=== PATIENT | female | born 1955 | race African-American/Black ===

== ENCOUNTER 2017-10-17 09:44 | Emergency (ER) | payer OTHER ==
--- NOTE | 2017-10-17 10:23 | ER Document Report ---
ED Medical Screen (RME) - General Chief Complaint: Abdominal Pain Stated Complaint: RIGHT SIDE PAIN,POSSIBLE ABSCESS Time Seen by Provider: 10/17/17 10:21 Notes: Patient states she has had several days of right hip pain that is worse with walking. No known injuries. She also states that she has a "boil" on the upper center of her back that has spontaneously started to drain fluid. TRAVEL OUTSIDE OF THE [place] IN LAST 30 DAYS: No - Related Data Allergies/Adverse Reactions: No Known Allergies Allergy (Unverified 10/17/17 09:45) Past Medical History - Social History Frequency of alcohol use: Social Drug Abuse: None Renal/ Medical History: Denies: Hx Peritoneal Dialysis Physical Exam - Vital signs Vitals: Temp Pulse Resp BP Pulse Ox 98 F 77 18 155/83 H 96 10/17/17 10:07 10/17/17 10:07 10/17/17 10:07 10/17/17 10:07 10/17/17 10:07 Course - Vital Signs Vital signs: Temp Pulse Resp BP Pulse Ox 98 F 77 18 155/83 H 96 10/17/17 10:07 10/17/17 10:07 10/17/17 10:07 10/17/17 10:07 10/17/17 10:07
--- NOTE | 2017-10-17 10:54 | RADIOLOGY REPORT (SQ) ---
EXAM DESCRIPTION: HIP RIGHT AP/LATERAL COMPLETED DATE/TIME: 10/17/2017 10:39 am REASON FOR STUDY: pain COMPARISON: None. NUMBER OF VIEWS: Two views. TECHNIQUE: AP pelvis and additional frog-leg view of the right hip. LIMITATIONS: None. FINDINGS: MINERALIZATION: Normal. RIGHT HIP: No acute fracture dislocation. Arthritic change noted with periarticular osteophyte and m inor joint narrowing. LEFT HIP: No acute fracture or dislocation. Arthritic change noted with periarticular osteophyte and minor joint narrowing. PUBIS AND ISCHIUM: No fracture. PELVIS: No fracture. SACRUM: No fracture or dislocation. No worrisome bone lesions. LOWER LUMBAR SPINE: Arthritic change. SOFT TISSUES: Nonspecific pelvic calcifications, could represent uterine fibroid formation OTHER: If an occult fracture suspected clinically, consider followup imaging. IMPRESSION: Arthritic change of each hip. TECHNICAL DOCUMENTATION: JOB ID: [id number] [employer]- All Rights Reserved
--- NOTE | 2017-10-17 12:51 | ER Document Report ---
ED General - General Mode of Arrival: Ambulatory Information source: Patient TRAVEL OUTSIDE OF THE [place] IN LAST 30 DAYS: No <JOVON DOLAN - Last Filed: 10/17/17 13:08> <ILENE PICHARDO - Last Filed: 10/18/17 09:29> - General Chief Complaint: Abdominal Pain Stated Complaint: RIGHT SIDE PAIN,POSSIBLE ABSCESS Time Seen by Provider: 10/17/17 10:21 Notes: Patient is a 62 year old female presenting to the emergency department complaining of right hip pain and an abscess on her back. Patient states her hip pain was onset 2 days ago. Patient states she was walking when the pain was onset suddenly. Patient also complains of chills. Patient denies a fall or injury to her hip, cough or congestion. Patient further states the abscess on her back was onset 5 days ago, stating it has grown in size and began to drain when originally it was a small bump on her back that she has had for years. (JOVON DOLAN) - Related Data Allergies/Adverse Reactions: No Known Allergies Allergy (Unverified 10/17/17 09:45) Past Medical History - General Information source: Patient - Social History Smoking Status: Never Smoker Frequency of alcohol use: Social Drug Abuse: None Patient has suicidal ideation: No Patient has homicidal ideation: No <JOVON DOLAN - Last Filed: 10/17/17 13:08> - Social History Family History: Reviewed & Not Pertinent <ILENE PICHARDO - Last Filed: 10/18/17 09:29> Review of Systems - Review of Systems Constitutional: See HPI, Chills EENT: No symptoms reported Cardiovascular: No symptoms reported Respiratory: No symptoms reported Gastrointestinal: No symptoms reported Genitourinary: No symptoms reported Female Genitourinary: No symptoms reported Musculoskeletal: See HPI Skin: See HPI Hematologic/Lymphatic: No symptoms reported Neurological/Psychological: No symptoms reported -: Yes All other systems reviewed and negative <JOVON DOLAN - Last Filed: 10/17/17 13:08> Physical Exam - General General appearance: Appears well, Alert In distress: None - HEENT Head: Normocephalic, Atraumatic Eyes: Normal Conjunctiva: Normal Pupils: PERRL Mucous membranes: Normal - Respiratory Respiratory status: No respiratory distress Chest status: Nontender Breath sounds: Normal Chest palpation: Normal - Cardiovascular Rhythm: Regular Heart sounds: Normal auscultation Murmur: No Friction rub: No Gallop: None auscultated - Abdominal Inspection: Normal Distension: No distension Bowel sounds: Normal Tenderness: Nontender Organomegaly: No organomegaly - Back Back: Nontender, Other - Sinus with induration and purulence that is apporixmately 6x6cm located upper mid back. - Extremities General upper extremity: Normal inspection, Normal ROM General lower extremity: Normal inspection, Normal ROM Hip: Other - able to bear weight bilaterally - Neurological Neuro grossly intact: Yes Cognition: Normal Orientation: AAOx4 Jitendra Coma Scale Eye Opening: Spontaneous Cascade Coma Scale Verbal: Oriented Cascade Coma Scale Motor: Obeys Commands Cascade Coma Scale Total: 15 Speech: Normal - Psychological Associated symptoms: Normal affect, Normal mood - Skin Skin Temperature: Warm Skin Moisture: Dry Skin Color: Normal <JOVON DOLAN - Last Filed: 10/17/17 13:08> - Vital signs Vitals: Temp Pulse Resp BP Pulse Ox 98 F 77 18 155/83 H 96 10/17/17 10:07 10/17/17 10:07 10/17/17 10:07 10/17/17 10:07 10/17/17 10:07 Course <JOVON DOLAN - Last Filed: 10/17/17 13:08> <ILENE PICHARDO - Last Filed: 10/18/17 09:29> - Re-evaluation Re-evalutation: 10/17/17 15:04 Patient shows osteoarthritis but no evidence of fracture. Patient has not had any traumas or falls to suggest fracture. Discussed with patient need to follow -up with primary care referral and physical therapy. Will provide 5 days of prednisone. In regards to her abscess on her upper back incision and drainage is performed with minimal amount of purulence and bloody discharge. Packing was applied. Will provide 5 days of Bactrim. Patient is to remove wick in 2 days and has not fallen out by them. Return precautions provided. (ILENE PICHARDO ) - Vital Signs Vital signs: Temp Pulse Resp BP Pulse Ox 98.2 F 64 18 131/60 H 96 10/17/17 15:19 10/17/17 15:19 10/17/17 15:19 10/17/17 15:19 10/17/17 15:19 Procedures <JOVON DOLAN - Last Filed: 10/17/17 13:08> - Incision and Drainage Back Type: Simple Anesthetic type: 1% Lidocaine mL's of anesthetic: 4 Blade size: 11 I&D procedure: Betadine prep applied Incision Method: Incision made by scalpel <ILENE PICHARDO - Last Filed: 10/18/17 09:29> - Incision and Drainage Back Notes: 10/17/17 15:05 Approximately 2-3 cc of blood and purulence expressed 10/17/17 15:05 Patient tolerated procedure well. (ILENE PICHARDO) Discharge <JOVON DOLAN - Last Filed: 10/17/17 13:08> <ILENE PICHARDO - Last Filed: 10/18/17 09:29> - Discharge Clinical Impression: Abscess Osteoarthritis Qualifiers: Osteoarthritis location: hip Osteoarthritis type: unspecified Laterality: bilateral Qualified Code(s): M16.0 - Bilateral primary osteoarthritis of hip Disposition: HOME, SELF-CARE Instructions: Abscess ([facility]), Osteoarthritis ([facility]) Prescriptions: Prednisone [Deltasone 20 mg Tablet] 40 tab PO DAILY 5 Days #10 tablet Sulfamethoxazole/Trimethoprim [Bactrim Ds Tablet] 1 each PO BID 5 Days #10 tablet Scribe Attestation: 10/18/17 09:28 I personally performed the services described documentation, reviewed and edited the documentation which was dictated to describe my presence, and it accurately records my words and actions. (ILENE PICHARDO) Scribe Documentation - Scribe Written by Cynthia:: Cynthia Owen, 10/17/2017 12:55 acting as scribe for :: Dimitrios <JOVON DOLAN - Last Filed: 10/17/17 13:08>
[2017-10-17 15:27] VITALS: BP 131/60
== END 2017-10-17 15:24 | disposition home or self-care (01) ==
LOC: ER 09:44
PROC: 0H96XZZ Drainage of Back Skin, External Approach (ICD-10-PCS; principal; 2017-10-17)
DX: L02.212 Cutaneous abscess of back [any part, except buttock and flank] (principal); M16.0 Bilateral primary osteoarthritis of hip; M25.551 Pain in right hip; R10.9 Unspecified abdominal pain
CPT/HCPCS: 99284

== ENCOUNTER → 2018-01-27 | Outpatient (CLI) | payer OTHER ==
[2018-01-27 13:24] LABS: ABSOLUTE EOSINOPHILS # (AUTO) 0.1 10^3/uL (0.0-0.6); ABSOLUTE LYMPHOCYTES (AUTO) 2.5 10^3/uL (0.5-4.7); ABSOLUTE MONOCYTES (AUTO) 0.4 10^3/uL (0.1-1.4); ABSOLUTE NEUT (AUTO) 2.6 10^3/uL (1.7-8.2); BASOPHILS % (AUTO) 0.3 % (0-2); HEMATOCRIT 35.4 % (36.0-47.0); HEMOGLOBIN 11.6 g/dL (12.0-15.5); LYMPHOCYTES % (AUTO) 43.9 % (13-45); MEAN CORPUSCULAR HEMOGLOBIN 28.5 pg (27.0-33.4); MEAN CORPUSCULAR HGB CONC 32.9 g/dL (32.0-36.0); MEAN CORPUSCULAR VOLUME 87 fl (80-97); PLATELET COUNT 260 10^3/uL (150-450); RED BLOOD COUNT 4.09 10^6/uL (3.72-5.28); RED CELL DISTRIBUTION WIDTH 15.2 % (11.5-14.0); SEGMENTED NEUTROPHILS % (AUTO) 45.8 % (42-78); TOTAL CELLS COUNTED % (AUTO) 100 %; WHITE BLOOD COUNT 5.6 10^3/uL (4.0-10.5)
[2018-01-27 13:50] LABS: ALANINE AMINOTRANSFERASE 51 U/L (9-52); ALBUMIN 4.2 g/dL (3.5-5.0); ALKALINE PHOSPHATASE 60 U/L (38-126); ANION GAP 14 (5-19); ASPARTATE AMINO TRANSFERASE 41 U/L (14-36); BILIRUBIN,DIRECT 0.3 mg/dL (0.0-0.4); BILIRUBIN,TOTAL 0.3 mg/dL (0.2-1.3); BLOOD UREA NITROGEN 12 mg/dL (7-20); CALCIUM 9.7 mg/dL (8.4-10.2); CARBON DIOXIDE 28 mmol/L (22-30); CHLORIDE 104 mmol/L (98-107); CHOLESTEROL 258.57 mg/dL (0-200); GLUCOSE 101 mg/dL (75-110); SODIUM 145.8 mmol/L (137-145); TOTAL PROTEIN 7.6 g/dL (6.3-8.2); TRIGLYCERIDES 158 mg/dL (<150)
[2018-01-27 14:01] LABS: DIRECT LDL 185 mg/dL (<100)
[2018-01-27 14:04] LABS: VLDL CHOLESTEROL 31.6 mg/dL (10-31)
== END ==
LOC: CCC 12:26
DX: Z00.00 Encounter for general adult medical examination without abnormal findings (principal)
CPT/HCPCS: 36415; 80053; 80061; 83036; 84443; 85025

== ENCOUNTER 2018-04-10 09:24 | Emergency (ER) | payer SELFPAY ==
[2018-04-10] MEDS ORDERED: ASPIRIN 81 MG TABLET, CHEWABLE PO ONE (09:58)
--- NOTE | 2018-04-10 10:00 | ER Document Report ---
ED Medical Screen (RME) - General Chief Complaint: Shoulder Pain Stated Complaint: SHOULDER/ARM PAIN Time Seen by Provider: 04/10/18 09:54 Mode of Arrival: Ambulatory Information source: Patient Notes: Patient presents complaining of left shoulder, neck and back pain pain for the past 4 days that radiated into the left upper chest area yesterday. Patient denies any history of arthritis involving the shoulder. Patient denies any shoulder injury. Patient does report cough for the past 5 days. Patient denies any nausea vomiting or shortness of breath. hx: Hypertension, dyslipidemia, osteoarthritis I have greeted and performed a rapid initial assessment of this patient. A comprehensive ED assessment and evaluation of the patient, analysis of test results and completion of the medical decision making process will be conducted by additional ED providers. TRAVEL OUTSIDE OF THE [place] IN LAST 30 DAYS: No - Related Data Allergies/Adverse Reactions: No Known Allergies Allergy (Unverified 10/17/17 09:45) Past Medical History Renal/ Medical History: Denies: Hx Peritoneal Dialysis Physical Exam - Vital signs Vitals: Temp Pulse Resp BP Pulse Ox 98 F 71 16 167/57 H 97 04/10/18 09:28 04/10/18 09:28 04/10/18 09:28 04/10/18 09:28 04/10/18 09:28 - Cardiovascular Rhythm: Regular Heart sounds: S2 appreciated Course - Vital Signs Vital signs: Temp Pulse Resp BP Pulse Ox 98 F 71 16 167/57 H 97 04/10/18 09:28 04/10/18 09:28 04/10/18 09:28 04/10/18 09:28 04/10/18 09:28 Doctor's Discharge - Discharge Referrals: [facility] [Primary Care Provider] - Follow up as needed
--- NOTE | 2018-04-10 10:28 | RADIOLOGY REPORT (SQ) ---
EXAM DESCRIPTION: CHEST 2 VIEWS COMPLETED DATE/TIME: 04/10/2018 10:19 am REASON FOR STUDY: cp COMPARISON: None. EXAM PARAMETERS: NUMBER OF VIEWS: two views TECHNIQUE: Digital Frontal and Lateral radiographic views of the chest acquired. RADIATION DOSE: NA LIMITATIONS: The patient's gabriella obscure detail somewhat. None FINDINGS: LUNGS AND PLEURA: No opacities, masses or pneumothorax. No pleural effusion. MEDIASTINUM AND HILAR STRUCTURES: No masses or contour abnormalities. HEART AND VASCULAR STRUCTURES: Borderline cardiomegaly. No evidence for failure. BONES: No acute findings. HARDWARE: None in the chest. OTHER: No other significant finding. IMPRESSION: 1 No acute pulmonary findings. 2 Borderline cardiomegaly. No evidence for failure. TECHNICAL DOCUMENTATION: JOB ID: [id number] [employer]- All Rights Reserved Reading location - IP/workstation name: [email or web address]
[2018-04-10 11:34] LABS: ABSOLUTE BASOPHILS # (AUTO) 0.1 10^3/uL (0.0-0.2); ABSOLUTE EOSINOPHILS # (AUTO) 0.1 10^3/uL (0.0-0.6); ABSOLUTE LYMPHOCYTES (AUTO) 2.4 10^3/uL (0.5-4.7); ABSOLUTE MONOCYTES (AUTO) 0.4 10^3/uL (0.1-1.4); ABSOLUTE NEUT (AUTO) 2.7 10^3/uL (1.7-8.2); BASOPHILS % (AUTO) 1.3 % (0-2); EOSINOPHILS % (AUTO) 1.9 % (0-6); HEMATOCRIT 36.9 % (36.0-47.0); HEMOGLOBIN 11.9 g/dL (12.0-15.5); LYMPHOCYTES % (AUTO) 42.5 % (13-45); MEAN CORPUSCULAR HGB CONC 32.4 g/dL (32.0-36.0); MEAN CORPUSCULAR VOLUME 86 fl (80-97); MONOCYTES % (AUTO) 7.1 % (3-13); PLATELET COUNT 291 10^3/uL (150-450); RED BLOOD COUNT 4.27 10^6/uL (3.72-5.28); RED CELL DISTRIBUTION WIDTH 15.1 % (11.5-14.0); SEGMENTED NEUTROPHILS % (AUTO) 47.2 % (42-78); TOTAL CELLS COUNTED % (AUTO) 100 %; WHITE BLOOD COUNT 5.7 10^3/uL (4.0-10.5)
[2018-04-10 11:57] LABS: ALANINE AMINOTRANSFERASE 38 U/L (9-52); ALBUMIN 4.1 g/dL (3.5-5.0); ALKALINE PHOSPHATASE 69 U/L (38-126); ANION GAP 13 (5-19); ASPARTATE AMINO TRANSFERASE 31 U/L (14-36); BILIRUBIN,DIRECT 0.3 mg/dL (0.0-0.4); BILIRUBIN,TOTAL 0.3 mg/dL (0.2-1.3); BLOOD UREA NITROGEN 12 mg/dL (7-20); CALCIUM 9.5 mg/dL (8.4-10.2); CARBON DIOXIDE 25 mmol/L (22-30); CHLORIDE 109 mmol/L (98-107); CREATINE KINASE 214 U/L (30-135); GLUCOSE 100 mg/dL (75-110); POTASSIUM 4.1 mmol/L (3.6-5.0); SODIUM 146.6 mmol/L (137-145); TOTAL PROTEIN 7.7 g/dL (6.3-8.2)
[2018-04-10 12:29] LABS: CREATINE KINASE MB 1.24 ng/mL (<4.55)
[2018-04-10 12:30] LABS: TROPONIN I < 0.012 ng/mL
--- NOTE | 2018-04-10 12:40 | EKG REPORT ---
SEVERITY:- ABNORMAL ECG - SINUS RHYTHM FIRST DEGREE AV BLOCK BORDERLINE T ABNORMALITIES, ANT-LAT LEADS : Confirmed by: Yariel Oconnor MD 10-Apr-2018 12:39:49
--- NOTE | 2018-04-10 12:49 | RADIOLOGY REPORT (SQ) ---
EXAM DESCRIPTION: SHOULDER LEFT 2 OR MORE VIEWS COMPLETED DATE/TIME: 04/10/2018 12:32 pm REASON FOR STUDY: left shoulder pain x 4 days, pain w/ movement COMPARISON: None. NUMBER OF VIEWS: Three views. TECHNIQUE: Internal rotation, external rotation, and Y view images acquired of the left shoulder. LIMITATIONS: None. FINDINGS: MINERALIZATION: Normal. BONES: No acute fracture or dislocation. No worrisome bone lesions. JOINTS: Mild to moderate acromioclavicular arthrosis. No dislocation. VISUALIZED LUNGS AND RIBS: No pneumothorax. No rib fracture. SOFT TISSUES: No radiopaque foreign body. OTHER: No other significant finding. 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 2 No acute osseous findings. TECHNICAL DOCUMENTATION: JOB ID: [id number] [employer]- All Rights Reserved Reading location - IP/workstation name: [email or web address]
[2018-04-10 13:08] VITALS: BP 146/72
--- NOTE | 2018-04-10 13:49 | ER Document Report ---
ED General - General Chief Complaint: Shoulder Pain Stated Complaint: SHOULDER/ARM PAIN Time Seen by Provider: 04/10/18 09:54 Mode of Arrival: Ambulatory TRAVEL OUTSIDE OF THE [place] IN LAST 30 DAYS: No - HPI Notes: 63-year-old female with medical history of hypertension, osteoarthritis and hyperlipidemia presents to the ED for complaints of left shoulder pain and left upper chest pain that has been occurring for the last 4 days. Patient states pain started in the left shoulder and states pain radiated to the very outside of her left upper chest. Patient denies any chest pain or shortness of breath. Patient reports pain is a dull ache, denies any squeezing, pressure, stabbing or tightness of pain. Denies cardiac history. Known medical history of father , states that mother had CHF and she was in her 80's. denies any trauma, cannot recall lifting anything heavy however she is left-handed. Patient tried heat with some relief. Denies any other radiation of pain.Denies any over -the-counter medications for pain relief . Vision states she has had a dry cough for the last 4 days denies any nasal congestion or other URI symptoms. There is any pedal edema, Denies fevers, chills, chest pain,palpitations, shortness of breath, dyspnea, nausea, vomiting, diarrhea, abdominal pain, hematuria,blurred vision, double vision, loss of vision, speech changes, LH, dizziness, syncope, headaches, wheezing, ST, URI, neck pain, weakness, bowel or bladder dysfunction, saddle anesthesia, numbness or tingling in bilateral upper or lower extremities equally, muscle paralysis, weakness in bilateral upper or lower extremities equally or rash. Denies IV drug use. - Related Data Allergies/Adverse Reactions: No Known Allergies Allergy (Unverified 10/17/17 09:45) Past Medical History - General Information source: Patient - Social History Smoking Status: Never Smoker Chew tobacco use (# tins/day): No Drug Abuse: None Family History: Reviewed & Not Pertinent Patient has suicidal ideation: No Patient has homicidal ideation: No - Past Medical History Cardiac Medical History: Reports: Hx Hypertension Renal/ Medical History: Denies: Hx Peritoneal Dialysis Review of Systems - Review of Systems Constitutional: No symptoms reported EENT: No symptoms reported Cardiovascular: No symptoms reported Respiratory: No symptoms reported Gastrointestinal: No symptoms reported Genitourinary: No symptoms reported Female Genitourinary: No symptoms reported Musculoskeletal: See HPI Skin: No symptoms reported Hematologic/Lymphatic: No symptoms reported Neurological/Psychological: No symptoms reported Physical Exam - Vital signs Vitals: Temp Pulse Resp BP Pulse Ox 98 F 71 16 167/57 H 97 04/10/18 09:28 04/10/18 09:28 04/10/18 09:28 04/10/18 09:28 04/10/18 09:28 - Notes Notes: PHYSICAL EXAMINATION: GENERAL: Well-appearing, well-nourished and in no acute distress. HEAD: Atraumatic, normocephalic. EYES: Pupils equal round and reactive to light, extraocular movements intact, conjunctiva are normal. ENT: Nares patent, oropharynx clear without exudates. Moist mucous membranes. NECK: Normal range of motion, supple without lymphadenopathy LUNGS: Breath sounds clear to auscultation bilaterally and equal. No wheezes rales or rhonchi. HEART: Regular rate and rhythm without murmurs ABDOMEN: Soft, nontender, nondistended abdomen. No guarding, no rebound. No masses appreciated. Female : deferred Musculoskeletal: Normal range of motion, no pitting or edema. No cyanosis. Left shoulder pain with abduction and flexion at 60 degrees. Able to reproduce pain that brought patient to the emergency room on left shoulder and left anterior aspect of chest proximal to left shoulder. no pain with supination, pronation, extension. negative , Orthopedics Teacher + 2 BUE equally. APROM in shoulder. DTR + 2 in BUE equally. Noted crepitus with APROM in elbow. negative drop arm, neer sign, dhaliwal test bilaterally. slightly positive impingement sign all on left. No vascular compromise. Neck with full APROM, no cervical spinal tenderness. No tenderness over clavicles or step off noted bilaterally. Strength 5 out of 5 in bilateral upper extremities equally. NEUROLOGICAL: Cranial nerves grossly intact. Normal speech, normal gait. Normal sensory, motor exams PSYCH: Normal mood, normal affect. SKIN: Warm, Dry, normal turgor, no rashes or lesions noted. Course - Re-evaluation Re-evalutation: 04/10/18 17:52 63-year-old female who is afebrile vitals stable and in no distress presents for evaluation of shoulder pain that has radiated to the anterior aspect of her chest for the last 4 days. Troponin less than 0.012 and this left shoulder pain with left anterior aspect proximal to shoulder chest pain has been occurring for the last 4 days with a dull ache. Shoulder x-ray shows left acromioclavicular arthrosis, chest x-ray negative for pneumonia, pneumothorax, vascular congestion or any other acute pulmonary issues. BC negative for leukocytosis or anemia, CMP negative for hepatic, renal deficiencies, no electrolyte disturbances. CK at 214 this likely could be elevated from her shoulder looks to be arthritis. Pt Adamantly denies any shortness of breath or chest pain. HEART Score:History of left shoulder pain with anterior chest wall pain proximal to shoulder for the last 4 days denies radiation to jaw or down the arm. ECG normal sinus rhythm Age 63 Risk Factors hypertension, hypercholesterolemia, obesity. Patient does not smoke. Denies any family history of any MIs in family over the age of 65. Denies prior [place], CABG CVA or TIA, PVD Troponin initial troponin normal Total: 3 If HEART score is = 3 AND both tronponin measurments are normal, the 30 day risk of a major adverse cardiac event (all-cause mortality, myocardia infarction or need for coronary revscularization) is < 1% (Sensitivity 100%, NPV 100%). Chest pain in a patient without evidence of cardiac or other serious etiology on workup today. I discussed with patient that, based on their age, risk factors and emergency department testing today, the likelihood that their symptoms are related to a heart attack is very low (estimated risk of heart attack or over the next 30 days of less than 1%). The patient demonstrates decision making capacity and has verbalized an understanding of these risks to me. Based on this, the patient has chosen to follow-up as an outpatient. Usual chest pain return precautions reviewed. The patient states understanding and agreement with this plan. after performing a Medical Screening Examination, I estimate there is LOW risk for RUPTURED ESOPHAGUS, PNEUMOTHORAX, PULMONARY EMBOLISM, ACUTE CORONARY SYNDROME, OR THORACIC AORTIC DISSECTION as well as Low risk for compartment syndrome, tendon rupture, neurovascular injurythus I consider the discharge disposition reasonable. I have reevaluated this patient multiple times and no significant life threatening changes are noted. The patient and I have discussed the diagnosis and risks, and we agree with discharging home with close follow-up. We also discussed returning to the Emergency Department immediately if new or worsening symptoms occur. We have discussed the symptoms which are most concerning (e.g., bloody sputum, worsening pain or shortness of breath) that necessitate immediate return. She placed in left sling and advised to follow-up with internal corrosion specialist within the next week. Advised to alternate between heat and elevation. If symptoms become worse to return to the emergency room immediately. - Vital Signs Vital signs: Temp Pulse Resp BP Pulse Ox 98 F 71 20 146/72 H 97 04/10/18 09:28 04/10/18 09:28 04/10/18 13:02 04/10/18 13:02 04/10/18 13:02 - Laboratory Result Diagrams: 04/10/18 11:15 04/10/18 11:15 Laboratory results interpreted by me: 04/10/18 04/10/18 11:15 11:15 Hgb 11.9 L RDW 15.1 H Sodium 146.6 H Chloride 109 H Creatine Kinase 214 H Discharge - Discharge Clinical Impression: Left shoulder pain Qualifiers: Chronicity: acute Qualified Code(s): M25.512 - Pain in left shoulder Condition: Stable Disposition: HOME, SELF-CARE Instructions: Arm Pain, Nonspecific ([facility]), Exercise Program for the Shoulder ( [facility]), Shoulder Injury ([facility]) Additional Instructions: Shoulder Injury You have injured your shoulder. This usually results from stretching or tearing of the tendons during trauma. Time and protection are required in order to heal properly. Many injuries are quite disabling, and should be taken seriously. Initial treatment includes cold packs and a sling to rest the shoulder. The physician has assessed the seriousness of your injury, and has outlined a treatment plan. Understand that this treatment may change, depending on how you progress. If a re-examination was recommended, it is important that you follow up as instructed. Some shoulder injuries (such as partial tear of the rotator cuff) are only suspected after you've failed to improve. Call us if there's severe pain, numbness, or loss of function. Your x-ray of your shoulder showed mild to moderate acromioclvicular arthrosis , this is a chronic finding no acute fracture dislocation.Your cardiac evaluation was negative. EKG, her cardiac enzymes and chest x-ray were negative for any acute findings. Please follow-up with internal corrosion specialist within 24-72 hours. Wear sling as directed, take arm out of sling a few times a day to prevent contracture. Ibuprofen and Tylenol for pain control. Apply heat 20 minutes on 20 minutes off several times a day. Return immediately for any new or worsening symptoms. Follow up with primary care provider, call tomorrow to make followup appointment. Forms: Return to Work Referrals: [facility] [NO LOCAL MD] - Follow up in 3-5 days JULIANO DOYLE DO [ACTIVE STAFF] - Follow up in 3-5 days (prn)
== END 2018-04-10 15:43 | disposition home or self-care (01) ==
LOC: ER 09:24
DX: M19.012 Primary osteoarthritis, left shoulder (principal); M25.512 Pain in left shoulder; R07.89 Other chest pain; R05 Cough; I10 Essential (primary) hypertension; Z82.49 Family history of ischemic heart disease and other diseases of the circulatory system
CPT/HCPCS: 36415; 71046; 80053; 82550; 82553; 84484; 85025; 93005; 93010; 99284

== ENCOUNTER → 2018-08-31 | Outpatient (CLI) | payer OTHER ==
[2018-08-31 12:28] LABS: ALANINE AMINOTRANSFERASE 33 U/L (9-52); ALBUMIN 4.1 g/dL (3.5-5.0); ALKALINE PHOSPHATASE 64 U/L (38-126); ANION GAP 6 (5-19); ASPARTATE AMINO TRANSFERASE 35 U/L (14-36); BILIRUBIN,DIRECT 0.3 mg/dL (0.0-0.4); BILIRUBIN,TOTAL 0.3 mg/dL (0.2-1.3); BLOOD UREA NITROGEN 15 mg/dL (7-20); CALCIUM 9.5 mg/dL (8.4-10.2); CARBON DIOXIDE 32 mmol/L (22-30); CHLORIDE 103 mmol/L (98-107); CHOLESTEROL 236.81 mg/dL (0-200); GLUCOSE 110 mg/dL (75-110); POTASSIUM 4.3 mmol/L (3.6-5.0); SODIUM 141.1 mmol/L (137-145); TOTAL PROTEIN 7.4 g/dL (6.3-8.2); TRIGLYCERIDES 131 mg/dL (<150)
[2018-08-31 12:39] LABS: DIRECT LDL 149 mg/dL (<100)
== END ==
LOC: CCC 11:04
DX: Z00.00 Encounter for general adult medical examination without abnormal findings (principal)
CPT/HCPCS: 36415; 80053; 80061

== ENCOUNTER 2019-01-19 09:33 | Emergency (ER) | payer SELFPAY ==
[2019-01-19] MEDS ORDERED: LIDOCAINE 1% INJ-PF (10 MG/ML) 30 ML SDV INJ ONE (09:52)
--- NOTE | 2019-01-19 09:54 | ER Document Report ---
ED Medical Screen (RME) - General Chief Complaint: Boil Stated Complaint: POSSIBLE ABCESS Primary Care Provider: HUMBERTO MEDINA [Primary Care Provider] - Follow up as needed TRAVEL OUTSIDE OF THE [place] IN LAST 30 DAYS: No - HPI Notes: 01/19/19 09:50 Patient is a 63-year-old female with a history of hypertension hypercholesterolemia who presents complaining of possible abscess to the left axilla for the past 5 days. Patient states that she has had an abscess in this area before requiring incision and drainage. Denies drug allergies or history of MRSA. No history of IV drug abuse. Denies BOLES, fever, neck pain, URI, CP, SOB, Abd pain, n/v, or rash. I have treated and performed a rapid initial assessment of this patient. A comprehensive ED assessment and evaluation of the patient, analysis of test results and completion of medical decision making process will be conducted by additional ED providers. PHYSICAL EXAMINATION: GENERAL: Well-appearing, well-nourished and in no acute distress. A&Ox4. Answers questions appropriately. LUNGS: Breath sounds clear to auscultation bilaterally and equal. No wheezes rales or rhonchi. HEART: Regular rate and rhythm without murmurs, rubs, gallops. Left axilla: + fluctuant area noted with mild erythema/induration. + tenderness. - Related Data Allergies/Adverse Reactions: No Known Allergies Allergy (Unverified 10/17/17 09:45) Past Medical History - Past Medical History Cardiac Medical History: Reports: Hx Hypertension Renal/ Medical History: Denies: Hx Peritoneal Dialysis Physical Exam - Vital signs Vitals: Temp Pulse Resp BP Pulse Ox 98.6 F 77 18 146/62 H 96 01/19/19 09:45 01/19/19 09:45 01/19/19 09:45 01/19/19 09:45 01/19/19 09:45 Course - Vital Signs Vital signs: Temp Pulse Resp BP Pulse Ox 98.6 F 77 18 146/62 H 96 01/19/19 09:45 01/19/19 09:45 01/19/19 09:45 01/19/19 09:45 01/19/19 09:45 Doctor's Discharge - Discharge Referrals: HUMBERTO MEDINA [Primary Care Provider] - Follow up as needed
--- NOTE | 2019-01-19 11:02 | ER Document Report ---
ED Skin Rash/Insect Bite/Abscs - General Chief Complaint: Boil Stated Complaint: POSSIBLE ABCESS Time Seen by Provider: 01/19/19 10:11 Primary Care Provider: [facility] [NO LOCAL MD] - Follow up as needed Notes: 63-year-old female to the emergency department with complaint of abscess under the left arm. Symptoms are present for approximately 1 week. Getting worse. Extremely painful. Has had this once before. TRAVEL OUTSIDE OF THE [place] IN LAST 30 DAYS: No - HPI Patient complains to provider of: Skin rash/lesion Onset: Last week Onset/Duration: Gradual, Worse Quality of pain: Throbbing Severity: Moderate Pain Level: 3 Skin Character: Abscess - Related Data Allergies/Adverse Reactions: No Known Allergies Allergy (Unverified 10/17/17 09:45) Past Medical History - General Information source: Patient - Social History Smoking Status: Never Smoker Frequency of alcohol use: None Drug Abuse: None Lives with: Family Family History: Reviewed & Not Pertinent Patient has suicidal ideation: No Patient has homicidal ideation: No - Past Medical History Cardiac Medical History: Reports: Hx Hypertension Renal/ Medical History: Denies: Hx Peritoneal Dialysis Review of Systems - Review of Systems Constitutional: denies: Fever, Malaise, Weakness EENT: denies: Ear pain, Throat pain, Mouth pain Cardiovascular: denies: Chest pain, Palpitations, Heart racing Respiratory: denies: Cough, Short of breath, Wheezing Gastrointestinal: denies: Abdominal pain, Diarrhea, Nausea, Vomiting Musculoskeletal: See HPI. denies: Joint pain, Muscle pain Skin: See HPI, Other - Cyst under the left arm. No bruising. No other lesions. Physical Exam - Vital signs Vitals: Temp Pulse Resp BP Pulse Ox 98.6 F 77 18 146/62 H 96 01/19/19 09:45 01/19/19 09:45 01/19/19 09:45 01/19/19 09:45 01/19/19 09:45 Interpretation: Normal - General General appearance: Appears well, Alert - Respiratory Respiratory status: No respiratory distress Chest status: Nontender Breath sounds: Normal Chest palpation: Normal - Cardiovascular Rhythm: Regular Heart sounds: Normal auscultation Murmur: No - Extremities General upper extremity: Normal inspection, Nontender, Normal color, Normal ROM, Normal temperature General lower extremity: Normal inspection, Nontender, Normal color, Normal ROM, Normal temperature, Normal weight bearing. No: Kelly's sign - Neurological Neuro grossly intact: Yes Cognition: Normal [place] Coma Scale Eye Opening: Spontaneous Jitendra Coma Scale Verbal: Oriented [place] Coma Scale Motor: Obeys Commands Jitendra Coma Scale Total: 15 Speech: Normal Motor strength normal: LUE, RUE, LLE, RLE Sensory: Normal - Skin Skin Temperature: Warm Skin Moisture: Dry Skin Color: Other - There is a large 6 cm x 5 cm abscess in the left axilla. Small amount of surrounding cellulitis. Course - Re-evaluation Re-evalutation: 01/19/19 10:58 Large amount of drainage obtained after I&D. Will place patient on antibiotic as she has some surrounding cellulitis. Advised 24 to 48-hour recheck. - Vital Signs Vital signs: Temp Pulse Resp BP Pulse Ox 98.6 F 77 18 146/62 H 96 01/19/19 09:45 01/19/19 09:45 01/19/19 09:45 01/19/19 09:45 01/19/19 09:45 Procedures - Incision and Drainage Left Type: Simple Anesthetic type: 1% Lidocaine mL's of anesthetic: 15 Blade size: 11 I&D procedure: Betadine prep applied Incision Method: Incision made by scalpel Amount/type of drainage: 30ml of purulent drainage Adult Front & Back picture: 1 - left axilla Discharge - Discharge Clinical Impression: Abscess Condition: Good Disposition: HOME, SELF-CARE Instructions: Abscess ([facility]), Cephalexin ([facility]), Post Incision and Drainage, Trimethoprim-Sulfa ([facility]) Additional Instructions: Return to the emergency department in 24 to 48 hours for dressing change and repacking. Before you come back for packing change take 800 mg of ibuprofen or a gram of Tylenol or actually can take both! The packing of the abscess can actually hurt quite a bit. Begin the antibiotic's as instructed. Return for any worsening symptoms or concerns. Prescriptions: Cephalexin Monohydrate [Keflex 500 mg Capsule] 500 mg PO Q6H 7 Days #28 capsule Sulfamethoxazole/Trimethoprim [Bactrim Ds Tablet] 1 each PO BID 7 Days #14 tablet Ref[facility]: [facility] [NO [facility]AL MD] - Follow up as needed
[2019-01-19] MEDS ORDERED: SULFAMETHOXAZOLE/TRIMETHOPRIM 800-160 MG TABLET PO ONE (11:03)
[2019-01-19] MEDS ORDERED: CEPHALEXIN 500 MG CAPSULE PO ONE (11:03)
[2019-01-19] MEDS ORDERED: IBUPROFEN 800 MG TABLET PO ONE (11:03)
[2019-01-19 11:37] VITALS: BP 126/62
== END 2019-01-19 11:35 | disposition home or self-care (01) ==
LOC: ER 09:33
DX: L02.412 Cutaneous abscess of left axilla (principal); I10 Essential (primary) hypertension
CPT/HCPCS: 99283; 82962; 10060; J3490

== ENCOUNTER → 2019-01-20 | Outpatient (CLI) | payer SELFPAY ==
[2019-01-20 11:05] LABS: ANION GAP 14 (5-19); BLOOD UREA NITROGEN 21 mg/dL (7-20); CALCIUM 9.9 mg/dL (8.4-10.2); CARBON DIOXIDE 27 mmol/L (22-30); CHLORIDE 99 mmol/L (98-107); GLUCOSE 109 mg/dL (75-110); POTASSIUM 4.5 mmol/L (3.6-5.0); SODIUM 139.5 mmol/L (137-145)
== END ==
LOC: CCC 09:47
DX: Z00.00 Encounter for general adult medical examination without abnormal findings (principal)
CPT/HCPCS: 36415; 80048; 83036

== ENCOUNTER 2019-01-21 10:51 | Emergency (ER) | payer SELFPAY ==
[2019-01-21 11:00] VITALS: BP 143/57
--- NOTE | 2019-01-21 11:10 | ER Document Report ---
HPI - HPI Patient complains to provider of: Wound recheck Time Seen by Provider: 01/21/19 11:03 Onset/Duration: Better Quality of pain: Achy Pain Level: 1 Context: Patient is here for a wound recheck from an abscess that she had an incision and drainage procedure performed here 2 days ago. The patient was placed on Keflex and Bactrim and has been compliant with taking her medications. Patient states that swelling and pain have improved. Associated Symptoms: Other - Axillary tenderness. denies: Fever Exacerbated by: Movement Relieved by: Denies Similar symptoms previously: No Recently seen / treated by doctor: Yes - ROS ROS below otherwise negative: Yes Systems Reviewed and Negative: Yes All other systems reviewed and negative - CONSTITUTIONAL Constitutional: DENIES: Fever, Chills - NEURO Neurology: DENIES: Weakness - GASTROINTESTINAL Gastrointestinal: DENIES: Nausea - MUSCULOSKELETAL Musculoskeletal: DENIES: Extremity pain - DERM Skin Color: Erythema Notes: Abscess to left axilla with packing in place Past Medical History - General Information source: Patient - Social History Smoking Status: Never Smoker Chew tobacco use (# tins/day): No Frequency of alcohol use: None Drug Abuse: None Occupation: None Lives with: Family Family History: Reviewed & Not Pertinent Patient has suicidal ideation: No Patient has homicidal ideation: No - Past Medical History Cardiac Medical History: Reports: Hx Hypercholesterolemia, Hx Hypertension Renal/ Medical History: Denies: Hx Peritoneal Dialysis Musculoskeletal Medical History: Reports Hx Arthritis Past Surgical History: Reports: Hx Orthopedic Surgery - RTKR Vertical Provider Document - CONSTITUTIONAL Agree With Documented VS: Yes Exam Limitations: No Limitations General Appearance: WD/WN, No Apparent Distress - INFECTION CONTROL TRAVEL OUTSIDE OF THE [place] IN LAST 30 DAYS: No - HEENT HEENT: Atraumatic, Normocephalic - NECK Neck: Normal Inspection - RESPIRATORY Respiratory: No Respiratory Distress - MUSCULOSKELETAL/EXTREMETIES Musculoskeletal/Extremeties: MAEW, FROM - NEURO Level of Consciousness: Awake, Alert, Appropriate Motor/Sensory: No Motor Deficit - DERM Integumentary: Warm, Dry, Abscess - Abscess with packing in place to left axilla Course - Re-evaluation Re-evalutation: 01/21/19 11:09 Again removed from axillary abscess to left axilla. Patient with minimal amount of drainage. Mild erythema surrounding incisional site. Patient encouraged to perform normal range of motion activities to the arms to help promote continued drainage from the area. Patient states area has decreased in size and feels much better. Discussed worsening symptoms that patient should return medially for. - Vital Signs Vital signs: Temp Pulse Resp BP Pulse Ox 98 F 77 16 143/57 H 94 01/21/19 10:59 01/21/19 10:59 01/21/19 10:59 01/21/19 10:59 01/21/19 10:59 Discharge - Discharge Clinical Impression: Encounter for wound re-check Condition: Stable Disposition: HOME, SELF-CARE Instructions: Abscess ([facility]), Antibiotic Therapy ([facility]) Additional Instructions: Return immediately for any new or worsening symptoms Followup with your primary care provider, call tomorrow to make a followup appointment Keep wound covered as it continues to heal Referrals: [facility] [NO [facility]AL MD] - Follow up as needed
== END 2019-01-21 11:18 | disposition home or self-care (01) ==
LOC: ER 10:51
DX: L02.412 Cutaneous abscess of left axilla (principal); E78.00 Pure hypercholesterolemia, unspecified; I10 Essential (primary) hypertension
CPT/HCPCS: 99282

== ENCOUNTER 2019-02-09 09:18 | Emergency (ER) | payer SELFPAY ==
--- NOTE | 2019-02-09 10:33 | ER Document Report ---
ED Extremity Problem, Lower - General Chief Complaint: Knee Pain Stated Complaint: KNEE AND HIP PAIN Time Seen by Provider: 02/09/19 10:33 Mode of Arrival: Ambulatory Information source: Patient Notes: Patient is a 63-year-old female with a history of osteoarthritis who presents to the ER today for chronic left knee pain and right hip pain. Patient denies any injury, states that she sometimes takes Tylenol which helps but that it is "only temporary." Patient has not followed up with her primary care provider about this. She states it has been hurting worse over the past couple of weeks. She denies any numbness or tingling, calf pain. TRAVEL OUTSIDE OF THE [place] IN LAST 30 DAYS: No - Related Data Allergies/Adverse Reactions: No Known Allergies Allergy (Verified 01/21/19 10:55) Past Medical History - General Information source: Patient - Social History Smoking Status: Unknown if Ever Smoked Family History: Reviewed & Not Pertinent - Past Medical History Cardiac Medical History: Reports: Hx Hypercholesterolemia, Hx Hypertension Renal/ Medical History: Denies: Hx Peritoneal Dialysis Musculoskeletal Medical History: Reports Hx Arthritis Past Surgical History: Reports: Hx Orthopedic Surgery - RTKR Review of Systems - Review of Systems Constitutional: No symptoms reported EENT: No symptoms reported Cardiovascular: No symptoms reported Respiratory: No symptoms reported Gastrointestinal: No symptoms reported Genitourinary: No symptoms reported Female Genitourinary: No symptoms reported Musculoskeletal: See HPI Skin: No symptoms reported Hematologic/Lymphatic: No symptoms reported Neurological/Psychological: No symptoms reported Physical Exam - Vital signs Vitals: Temp Pulse Resp BP Pulse Ox 98.2 F 79 16 150/72 H 96 02/09/19 09:21 02/09/19 09:21 02/09/19 09:21 02/09/19 09:21 02/09/19 09:21 - Notes Notes: PHYSICAL EXAMINATION: GENERAL: Obese, well-appearing and in no acute distress. HEAD: Atraumatic, normocephalic. EYES: Pupils equal round and reactive to light, extraocular movements intact, sclera anicteric, conjunctiva are normal. NECK: Normal range of motion, supple without lymphadenopathy LUNGS: CTAB and equal. No wheezes rales or rhonchi. HEART: Regular rate and rhythm without murmurs BACK: no vertebral tenderness, normal ROM GI/: no CVA tenderness EXTREMITIES: Normal range of motion, no pitting edema. No cyanosis. NEUROLOGICAL: Cranial nerves grossly intact. Normal sensory/motor exams. PSYCH: Normal mood, normal affect. SKIN: Warm, Dry, normal turgor, no rashes or lesions noted Course - Re-evaluation Re-evalutation: 02/09/19 10:46 Patient is here for chronic pain, she is had no injury or fall, I see no reason for x-rays today. Patient will be tried on Mobic and advised to follow-up with her primary care provider. - Vital Signs Vital signs: Temp Pulse Resp BP Pulse Ox 98.2 F 79 16 150/72 H 96 02/09/19 09:21 02/09/19 09:21 02/09/19 09:21 02/09/19 09:21 02/09/19 09:21 Discharge - Discharge Clinical Impression: Pain in right hip, History of osteoarthritis Pain in left knee Qualifiers: Chronicity: acute Qualified Code(s): M25.562 - Pain in left knee Condition: Stable Disposition: HOME, SELF-CARE Instructions: Ice & Elevation ([facility]) Additional Instructions: Return immediately for any new or worsening symptoms. Follow up with primary care provider, call tomorrow to make followup appointment. Prescriptions: Meloxicam [Mobic] 7.5 mg PO DAILY #15 tablet
[2019-02-09 10:49] VITALS: BP 147/73
== END 2019-02-09 10:56 | disposition home or self-care (01) ==
LOC: ER 09:18
DX: G89.29 Other chronic pain (principal); M25.562 Pain in left knee; M25.551 Pain in right hip; I10 Essential (primary) hypertension; Z87.39 Personal history of other diseases of the musculoskeletal system and connective tissue
CPT/HCPCS: 99283

== ENCOUNTER → 2019-05-10 | Outpatient (CLI) | payer MEDICARE ==
[2019-05-10 18:09] LABS: ABSOLUTE EOSINOPHILS # (AUTO) 0.1 10^3/uL (0.0-0.6); ABSOLUTE MONOCYTES (AUTO) 0.4 10^3/uL (0.1-1.4); ABSOLUTE NEUT (AUTO) 2.2 10^3/uL (1.7-8.2); BASOPHILS % (AUTO) 0.7 % (0-2); EOSINOPHILS % (AUTO) 1.5 % (0-6); HEMATOCRIT 35.8 % (36.0-47.0); HEMOGLOBIN 11.9 g/dL (12.0-15.5); LYMPHOCYTES % (AUTO) 51.7 % (13-45); MEAN CORPUSCULAR HEMOGLOBIN 28.2 pg (27.0-33.4); MEAN CORPUSCULAR HGB CONC 33.1 g/dL (32.0-36.0); MEAN CORPUSCULAR VOLUME 85 fl (80-97); MONOCYTES % (AUTO) 7.5 % (3-13); PLATELET COUNT 236 10^3/uL (150-450); RED CELL DISTRIBUTION WIDTH 14.9 % (11.5-14.0); SEGMENTED NEUTROPHILS % (AUTO) 38.6 % (42-78); TOTAL CELLS COUNTED % (AUTO) 100 %; WHITE BLOOD COUNT 5.8 10^3/uL (4.0-10.5)
[2019-05-10 18:18] LABS: ALBUMIN 4.2 g/dL (3.5-5.0); ALKALINE PHOSPHATASE 66 U/L (38-126); ANION GAP 9 (5-19); ASPARTATE AMINO TRANSFERASE 30 U/L (14-36); BILIRUBIN,DIRECT 0.2 mg/dL (0.0-0.4); BILIRUBIN,TOTAL 0.3 mg/dL (0.2-1.3); BLOOD UREA NITROGEN 12 mg/dL (7-20); CALCIUM 9.6 mg/dL (8.4-10.2); CARBON DIOXIDE 29 mmol/L (22-30); CHLORIDE 102 mmol/L (98-107); CHOLESTEROL 228.27 mg/dL (0-200); GLUCOSE 92 mg/dL (75-110); POTASSIUM 3.7 mmol/L (3.6-5.0); TOTAL PROTEIN 7.2 g/dL (6.3-8.2); TRIGLYCERIDES 168 mg/dL (<150)
[2019-05-10 18:29] LABS: DIRECT LDL 150 mg/dL (<100)
[2019-05-10 18:43] LABS: VLDL CHOLESTEROL 33.6 mg/dL (10-31)
== END ==
LOC: OD 17:21
PROVIDERS: ATTEND Family Medicine
DX: Z13.1 Encounter for screening for diabetes mellitus (principal); R53.82 Chronic fatigue, unspecified; E78.5 Hyperlipidemia, unspecified
CPT/HCPCS: 36415; 80053; 80061; 82306; 82607; 84443; 85025

== ENCOUNTER → 2019-05-23 | Outpatient (CLI) | payer MEDICARE ==
--- NOTE | 2019-05-24 16:46 | XCELERA REPORT ---
[address] [address] Transthoracic Echocardiogram Report Name: DENISHA SIMON Age: 64 yrs Gender: Female : 1955 Patient Status: Outpatient Patient Location: Study Date: 05/23/2019 08:14 AM Height: 65 in Weight: 280 lb BSA: 2.3 m2 Procedure: A complete two-dimensional transthoracic echocardiogram was performed (2D, M-mode, spectral and color flow Doppler). The study was technically adequate with some images being suboptimal in quality. Reason For Study: HEART MURMUR Ordering Physician: GERALD NEELY Performed By: Iwona Lombardi Interpretation Summary The left ventricular ejection fraction is normal. There is mild concentric left ventricular hypertrophy. Doppler measurements suggest pseudonormalized left ventricular relaxation, which is associated with grade II/IV or mild to moderate diastolic dysfunction The right ventricular systolic function is normal. The right ventricle is mildly dilated. The left atrium is borderline dilated. The right atrium is normal in size There is a trace to mild amount of mitral regurgitation There is no mitral valve stenosis. No aortic regurgitation is present. There is no aortic valve stenosis There is a trace to mild amount of tricuspid regurgitation There is mild to moderate pulmonary hypertension by echo Right ventricular systolic pressure is estimated to be elevated at 40-50mmHg. The aortic root is not well visualized but is probably normal size. The inferior vena cava was not well visualized There is no pericardial effusion. MMode/2D Measurements & Calculations IVSd: 0.79 cm LVIDd: 4.4 cm FS: 30.6 % Ao root diam: 2.6 cm LVIDs: 3.1 cm EDV(Teich): 88.3 ml Ao root area: 5.4 cm2 LVPWd: 0.89 cm ESV(Teich): 36.8 ml EF(Teich): 58.4 % Doppler Measurements & Calculations MV E max ilda: MV dec slope: Ao V2 max: LV V1 max P.4 cm/sec 552.7 cm/sec2 158.2 cm/sec 3.4 mmHg MV A max ilda: MV dec time: 0.18 secAo max PG: LV V1 max: 91.6 cm/sec 10.0 mmHg 92.1 cm/sec MV E/A: 1.1 PA V2 max: PI end-d ilda: TR max ilda: 125.4 cm/sec 110.7 cm/sec 290.5 cm/sec PA max P.3 mmHg TR max P.9 mmHg Left Ventricle The left ventricle is grossly normal size. There is mild concentric left ventricular hypertrophy. The left ventricular ejection fraction is normal. Doppler measurements suggest pseudonormalized left ventricular relaxation, which is associated with grade II/IV or mild to moderate diastolic dysfunction. Wall motion cannot be accurately commented on, but no definite regional wall motion abnormalities noted. Right Ventricle The right ventricle is mildly dilated. There is normal right ventricular wall thickness. The right ventricular systolic function is normal. Atria The right atrium is normal in size. The left atrium is borderline dilated. Interarterial septum not well visualized and not well dopplered. Cannot comment on ASD/PFO presence. Mitral Valve The mitral valve is grossly normal. There is no mitral valve stenosis. There is a trace to mild amount of mitral regurgitation. Aortic Valve The aortic valve is grossly normal. There is no aortic valve stenosis. No aortic regurgitation is present. Tricuspid Valve The tricuspid valve is not well visualized, but is grossly normal. There is no tricuspid stenosis. There is a trace to mild amount of tricuspid regurgitation. There is mild to moderate pulmonary hypertension by echo. Right ventricular systolic pressure is estimated to be elevated at 40-50mmHg. Pulmonic Valve The pulmonic valve is not well visualized. Great Vessels The aortic root is not well visualized but is probably normal size. The inferior vena cava was not well visualized. Effusions There is no pericardial effusion. There is no pleural effusion. : GERALD NEELY Shyamal
== END ==
LOC: SP 07:54
PROVIDERS: ATTEND Family Medicine
DX: R01.1 Cardiac murmur, unspecified (principal)
CPT/HCPCS: 93306

== ENCOUNTER → 2019-06-06 | Outpatient (CLI) | payer MEDICARE ==
--- NOTE | 2019-06-06 12:49 | RADIOLOGY REPORT (SQ) ---
EXAM DESCRIPTION: LUMBAR SPINE 2 VIEWS COMPLETED DATE/TIME: 06/06/2019 12:29 pm REASON FOR STUDY: RT HIP PAIN; LOW BACK PAIN AT MULTIPLE SITES M25.551 PAIN IN RIGHT HIP M54.5 LOW BACK PAIN COMPARISON: None. NUMBER OF VIEWS: Two views. TECHNIQUE: AP and lateral radiographic images acquired of the lumbar spine. LIMITATIONS: None. FINDINGS: MINERALIZATION: Normal. SEGMENTATION: Normal. No transitional anatomy. ALIGNMENT: Normal. VERTEBRAE: Maintained height. No fracture or worrisome bone lesion. DISCS: Multilevel degenerative disc disease with disc height loss greatest at L3 through S1. Additio nal spondylosis and osteophytosis with disc height loss in the lower thoracic spine. POSTERIOR ELEMENTS: Diffuse facet arthropathy throughout the lumbar spine. HARDWARE: None in the spine. PARASPINAL SOFT TISSUES: Pelvic phleboliths and vascular calcifications. PELVIS: Intact as visualized. No fractures or worrisome bone lesions. SI joints intact. OTHER: No other significant finding. IMPRESSION: No evidence of acute bony abnormality. Degenerative disc disease greatest at L3-S1 with multilevel facet arthropathy. TECHNICAL DOCUMENTATION: JOB ID: [id number]- All Rights Reserved Reading location - IP/workstation name: [email or web address]
--- NOTE | 2019-06-06 12:51 | RADIOLOGY REPORT (SQ) ---
EXAM DESCRIPTION: HIP RIGHT AP/LATERAL COMPLETED DATE/TIME: 06/06/2019 12:29 pm REASON FOR STUDY: RT HIP PAIN; LOW BACK PAIN AT MULTIPLE SITES M25.551 PAIN IN RIGHT HIP M54.5 LOW BACK PAIN COMPARISON: 10/17/2017 NUMBER OF VIEWS: Two views. TECHNIQUE: AP pelvis and additional frog-leg view of the right hip. LIMITATIONS: None. FINDINGS: MINERALIZATION: Normal. RIGHT HIP: No fracture or dislocation. No worrisome bone lesions. LEFT HIP: No fracture or dislocation. No worrisome bone lesions. PUBIS AND ISCHIUM: No fracture. PELVIS: No fracture. SACRUM: No fracture or dislocation. No worrisome bone lesions. LOWER LUMBAR SPINE: Lower lumbar degenerative disc disease and spondylosis SOFT TISSUES: No findings. OTHER: No other significant finding. IMPRESSION: Normal hip. Lumbar degenerative change. TECHNICAL DOCUMENTATION: JOB ID: [id number] [employer]- All Rights Reserved Reading location - IP/workstation name: [email or web address]
== END ==
LOC: OD 11:55
PROVIDERS: ATTEND Family Medicine
DX: M25.551 Pain in right hip (principal); M51.37 Other intervertebral disc degeneration, lumbosacral region; M54.5 Low back pain
CPT/HCPCS: 72100

== ENCOUNTER → 2019-08-10 | Outpatient (CLI) | payer MEDICARE | LOC: OD 12:51 | PROVIDERS: ATTEND Family Medicine | DX: E55.9 Vitamin D deficiency, unspecified (principal) | CPT/HCPCS: 36415; 82306 ==

== ENCOUNTER → 2019-10-24 | Outpatient (CLI) | payer MEDICARE ==
--- NOTE | 2019-10-24 10:34 | RADIOLOGY REPORT (SQ) ---
EXAM DESCRIPTION: CT CHEST WITHOUT COMPLETED DATE/TIME: 10/24/2019 9:43 am REASON FOR STUDY: RESTRICTIVE LUNG DISEASE J98.4 OTHER DISORDERS OF LUNG COMPARISON: Chest x-ray dated 04/10/2018 TECHNIQUE: CT scan performed of the chest without intravenous contrast. Images reviewed with lung, soft tissue and bone windows. Reconstructed coronal and sagittal MPR images reviewed. All images st ored on PACS. All CT scanners at this facility use dose modulation, iterative reconstruction, and/or weight based d osing when appropriate to reduce radiation dose to as low as reasonably achievable (ALARA). [facility]: Dose Right [facility]: CareDose [facility]: Dose Right [facility]: Teradose 4D [facility]: [employer] RADIATION DOSE: CT Rad equipment meets quality standard of care and radiation dose reduction techniq ues were employed. CTDIvol: 19.5 mGy. DLP: 711 mGy-cm. mGy. LIMITATIONS: No technical limitations. FINDINGS: LUNGS AND PLEURA: Scattered areas of ground-glass opacity most likely atelectasis. No foc al consolidation. No pleural effusions or suspicious nodules. HILAR AND MEDIASTINAL STRUCTURES: No identified masses or abnormal nodes. No obvious aneurysm. HEART AND VASCULAR STRUCTURES: No pericardial effusion. Prominent pulmonary arteries which may repre sent underlying pulmonary hypertension. UPPER ABDOMEN: No significant findings. Limited exam. THYROID AND OTHER SOFT TISSUES: There are prominent axillary nodes. Most likely reactive. No thyroi d lesions. BONES: No significant finding. HARDWARE: None in the chest. OTHER: No other significant findings. IMPRESSION: Scattered ground-glass opacity most likely atelectasis. Enlarged pulmonary arteries. Prominent axillary nodes these are nonspecific most likely reactive. TECHNICAL DOCUMENTATION: JOB ID: [id number] Quality ID # [id number]: Final reports with documentation of one or more dose reduction techniques (e.g., Au tomated exposure control, adjustment of the mA and/or kV according to patient size, use of iterative reconstruction technique) 2010 [employer]- All Rights Reserved Reading location - IP/workstation name: [email or web address]
--- NOTE | 2019-10-24 10:36 | RADIOLOGY REPORT (SQ) ---
EXAM DESCRIPTION: VENOUS BILATERAL LOWER COMPLETED DATE/TIME: 10/24/2019 9:39 am REASON FOR STUDY: EDEMA J98.4 OTHER DISORDERS OF LUNG COMPARISON: None. TECHNIQUE: Dynamic and static aguila scale and color images acquired of both lower extremity venous sy stems. Selected spectral images acquired with additional compression and augmentation maneuvers. Imag es stored on PACS. LIMITATIONS: Study is limited by body habitus. FINDINGS: RIGHT LEG COMMON FEMORAL AND FEMORAL: Normal phasicity, compression and augmentation. No visualized echogenic m aterial on aguila scale. No defects on color images. POPLITEAL: Normal compression and augmentation. No visualized echogenic material on aguila scale. No de fects on color images. CALF VESSELS: Normal compression and augmentation. No visualized echogenic material on aguila scale. No defects on color image. GSV AND SSV: Normal compression. No visualized echogenic material on aguila scale. No defects on color images. ANY DEEP VENOUS INSUFFICIENCY: Not evaluated. ANY EVIDENCE OF POPLITEAL CYST: No. OTHER: No other significant finding. LEFT LEG COMMON FEMORAL AND FEMORAL: Normal phasicity, compression and augmentation. No visualized echogenic m aterial on aguila scale. No defects on color images. POPLITEAL: Normal compression and augmentation. No visualized echogenic material on aguila scale. No de fects on color images. CALF VESSELS: Normal compression and augmentation. No visualized echogenic material on aguila scale. No defects on color images. GSV AND SSV: Normal compression. No visualized echogenic material on aguila scale. No defects on color images. ANY DEEP VENOUS INSUFFICIENCY: Not evaluated. ANY EVIDENCE POPLITEAL CYST: No. OTHER: No other significant finding. IMPRESSION: NO EVIDENCE DVT OR SVT IN EITHER LEG. TECHNICAL DOCUMENTATION: JOB ID: [id number] 2010 [employer]- All Rights Reserved Reading location - IP/workstation name: [email or web address]
--- NOTE | 2019-10-24 12:41 | RADIOLOGY REPORT (SQ) ---
EXAM DESCRIPTION: NM LUNG VENT/PERF SCAN COMPLETED DATE/TIME: 10/24/2019 12:20 pm REASON FOR STUDY: DYSPNEA J98.4 OTHER DISORDERS OF LUNG COMPARISON: Chest x-ray done earlier the same day. RADIONUCLIDE AND DOSE: 5.4 millicuries TC-99m MAA Intravenous 32.8 millicuries TC-99m DTPA Inhaled aerosol TECHNIQUE: Eight views of the lungs acquired post ventilation of DTPA aerosol. Eight matching views of the lungs acquired following injection of MAA. LIMITATIONS: None. FINDINGS: VENTILATION: Nondiagnostic. The patient was unable to tolerate the nose clamp for ventila tion study. PERFUSION: Perfusion images with normal homogenous activity and no wedge-shaped or segmental defects. No ventilation-perfusion mismatches. OTHER: No other significant finding. IMPRESSION: Normal perfusion study. Patient was unable to perform the ventilation portion of the ex am. TECHNICAL DOCUMENTATION: JOB ID: [id number] 2010 [employer]- All Rights Reserved Reading location - IP/workstation name: [email or web address]
== END ==
LOC: RAD 07:49
PROVIDERS: ATTEND Internal Medicine Critical Care Medicine
DX: J98.4 Other disorders of lung (principal); R06.00 Dyspnea, unspecified; R60.9 Edema, unspecified
CPT/HCPCS: 93970; 78582; 71250; A9540; A9567; Q9969

== ENCOUNTER → 2019-11-08 | Outpatient (CLI) | payer MEDICARE ==
[2019-11-08 14:29] LABS: ALBUMIN 4.9 g/dL (3.5-5.0); ALKALINE PHOSPHATASE 72 U/L (38-126); ASPARTATE AMINO TRANSFERASE 33 U/L (14-36); BILIRUBIN,DIRECT 0.3 mg/dL (0.0-0.4); BILIRUBIN,TOTAL 0.5 mg/dL (0.2-1.3); CHOLESTEROL 175.79 mg/dL (0-200); TOTAL PROTEIN 8.4 g/dL (6.3-8.2); TRIGLYCERIDES 116 mg/dL (<150)
[2019-11-08 14:40] LABS: DIRECT LDL 97 mg/dL (<100)
== END ==
LOC: OD 13:34
PROVIDERS: ATTEND Family Medicine
DX: E78.2 Mixed hyperlipidemia (principal)
CPT/HCPCS: 36415; 80061; 80076

== ENCOUNTER → 2020-01-25 | Outpatient (CLI) | payer MEDICARE ==
[2020-01-25 14:44] LABS: ALBUMIN 4.3 g/dL (3.5-5.0); ALKALINE PHOSPHATASE 68 U/L (38-126); ANION GAP 9 (5-19); ASPARTATE AMINO TRANSFERASE 29 U/L (14-36); BILIRUBIN,TOTAL 0.5 mg/dL (0.2-1.3); BLOOD UREA NITROGEN 14 mg/dL (7-20); CALCIUM 9.6 mg/dL (8.4-10.2); CARBON DIOXIDE 28 mmol/L (22-30); CHLORIDE 101 mmol/L (98-107); GLUCOSE 107 mg/dL (75-110); POTASSIUM 4.2 mmol/L (3.6-5.0); TOTAL PROTEIN 7.6 g/dL (6.3-8.2)
== END ==
LOC: OD 13:17
PROVIDERS: ATTEND Family Medicine
DX: R77.8 Other specified abnormalities of plasma proteins (principal); R73.03 Prediabetes
CPT/HCPCS: 36415; 80053; 83036

== ENCOUNTER → 2020-07-09 | Outpatient (CLI) | payer MEDICARE ==
[2020-07-09 12:14] LABS: APPEARANCE,URINE SLIGHTLY-CLOUDY; BILIRUBIN,URINE NEGATIVE (NEGATIVE); COLOR,URINE YELLOW; GLUCOSE, URINE NEGATIVE (NEGATIVE); KETONES,URINE NEGATIVE (NEGATIVE); LEUKOCYTE ESTERASE,URINE NEGATIVE (NEGATIVE); NITRITE,URINE NEGATIVE (NEGATIVE); PROTEIN,URINE NEGATIVE (NEGATIVE); URINE SPECIFIC GRAVITY 1.017; UROBILINOGEN,URINE NEGATIVE mg/dL (<2.0)
[2020-07-09 12:17] LABS: ALBUMIN 4.6 g/dL (3.5-5.0); ALKALINE PHOSPHATASE 74 U/L (38-126); ANION GAP 15 (5-19); ASPARTATE AMINO TRANSFERASE 32 U/L (14-36); BILIRUBIN,DIRECT 0.1 mg/dL (0.0-0.4); BILIRUBIN,TOTAL 0.5 mg/dL (0.2-1.3); BLOOD UREA NITROGEN 15 mg/dL (7-20); CALCIUM 9.9 mg/dL (8.4-10.2); CARBON DIOXIDE 26 mmol/L (22-30); CHLORIDE 100 mmol/L (98-107); CHOLESTEROL 161.79 mg/dL (0-200); GLUCOSE 106 mg/dL (75-110); POTASSIUM 3.9 mmol/L (3.6-5.0); TRIGLYCERIDES 158 mg/dL (<150)
[2020-07-09 12:27] LABS: DIRECT LDL 87 mg/dL (<100)
[2020-07-09 12:33] LABS: VLDL CHOLESTEROL 31.6 mg/dL (10-31)
== END ==
LOC: OD 11:12
PROVIDERS: ATTEND Family Medicine
DX: E55.9 Vitamin D deficiency, unspecified (principal); I10 Essential (primary) hypertension; E78.2 Mixed hyperlipidemia; R73.03 Prediabetes
CPT/HCPCS: 36415; 80053; 80061; 81001; 82306; 83036